=== PATIENT | female | born 1950 | race Caucasian/White ===

== ENCOUNTER 2022-11-04 08:45 | Outpatient (CLI) | payer OTHER, MEDICAID, SELFPAY ==
[2022-11-04 09:01] VITALS: BP 146/94; PULSE 78; RESP 20; TEMP 36.2; O2SAT 97
--- NOTE | 2022-11-04 09:41 | DI.RAD_ITS ---
Exam(s) XR PAIN CLINIC LUMBAR SP 2V EXAM: XR PAIN CLINIC LUMBAR SP 2V CLINICAL HISTORY: Dx: Lumbar Radiculopathy TECHNIQUE: 2D and realtime digital imaging was performed. Radiologist not present. CONTRAST MATERIAL: None. COMPARISON: No exams were available for comparison FINDINGS: Fluoroscopy was provided for pain management therapy. Please refer to procedure report or details. Cumulative dose: Ka,r=16.02 mGy IMPRESSION: RADIATION DOSE DELIVERED:
--- NOTE | 2022-11-04 09:42 | PDOC.PAIN_ITS ---
Date of service: 11/04/22 Time of Service: 11:08 Pain Clinic Procedure Note Procedure Note Procedure Note: Lumbar Epidural Steroid Injection Procedure Note COMMENTS:She was previously evaluated in our clinic. She was consented prior to taking her own Lorazepam. Pre-procedure pain VAS was 8/10 Dx: Lumbosacral radiculopathy Jami Schafer has been referred to the [facility] for lumbar epidural steroid injection. The patient was greeted by the nurse who verified patients name and . Patient was then taken to the fluoroscopy suite. The patient was interviewed and the medial record reviewed. There were no medical, pharmacologic, radiographic, or other structural contraindications to attempting fluoroscopically guided lumbar epidural steroid injection. Risks and expected side effects as well as potential benefits of the procedure were reviewed and voiced concerns expressed. The patient consent form was signed and witnessed. Standard patient time-out procedure was performed. The patient was placed in the prone position on the fluoroscopy table and automated blood pressure cuff and pulse oximeter applied. The skin entry point for entering/approaching the epidural space at L5-S1 and marked. Following thorough chlorhexadine preparation of the skin and draping and 1% lidocaine infiltration of the skin entry point and subcutaneous tissues, a 18 gauge Touhy needle was placed under fluoroscopic guidance and with loss of resistance technique into the epidural space. Needle tip placement and depth were aided and confirmed by fluoroscopy. There was no paresthesia or return of blood or CSF through the needle. 1 cc's of Omnipaque 240 was injected with clear epidural spread confirmed with fluoroscopy. 80mg depomedrol was injected. There was not any unusual discomfort expressed by Jami Schafer. Patient's vital signs were stable throughout the procedure and were as recorded in nursing records. Follow up plans and appointments were discussed with patient. Post procedure instruction was given as documented in nursing records and having met discharge criteria and was discharged from the [facility]. COMMENTS: If this procedure is helpful, it can be completed up to 3 times per 12 months. Post-procedure pain VAS was 2/10. Marc Matos DO, MPH [facility]-Pain Management [facility]-Center for Pain Management
[2022-11-04 09:52] VITALS: BP 138/91; PULSE 95; RESP 20; O2SAT 100
[2022-11-04] MEDS: methylPREDNISolone ACETATE 80 MG/ML VIAL IJ (09:53)
[2022-11-04] MEDS: Omnipaque 240 MG/ML 50 ML BTL IJ (09:54)
--- NOTE | 2022-11-04 10:23 | PDOC.PAIN ---
Date of service: 11/04/22 Time of Service: 10:00 Pain Clinic Procedure Note Procedure Note Procedure Note: Lumbar Epidural Steroid Injection Procedure Note COMMENTS: She was previously evaluated. Hem A1c was 6.5 on 08/11/22. Her pre-procedure low back and leg pain was 8/10. Dx: Lumbosacral radiculopathy Jami Schafer has been referred to the [facility] for lumbar epidural steroid injection. The patient was greeted by the nurse who verified patients name and . Patient was then taken to the fluoroscopy suite. The patient was interviewed and the medial record reviewed. There were no medical, pharmacologic, radiographic, or other structural contraindications to attempting fluoroscopically guided lumbar epidural steroid injection. Risks and expected side effects as well as potential benefits of the procedure were reviewed and voiced concerns expressed. The patient consent form was signed and witnessed. Standard patient time-out procedure was performed. The patient was placed in the prone position on the fluoroscopy table and automated blood pressure cuff and pulse oximeter applied. The skin entry point for entering/approaching the epidural space at L5-S1 and marked. Following thorough chlorhexadine preparation of the skin and draping and 1% lidocaine infiltration of the skin entry point and subcutaneous tissues, a 18 gauge Touhy needle was placed under fluoroscopic guidance and with loss of resistance technique into the epidural space. Needle tip placement and depth were aided and confirmed by fluoroscopy. There was no paresthesia or return of blood or CSF through the needle. 1 cc's of Omnipaque 240 was injected with clear epidural spread confirmed with fluoroscopy. 80mg depomedrol was injected. There was not any unusual discomfort expressed by Jami Schafer. Patient's vital signs were stable throughout the procedure and were as recorded in nursing records. Follow up plans and appointments were discussed with patient. Post procedure instruction was given as documented in nursing records and having met discharge criteria and was discharged from the [facility] Management [facility]. COMMENTS: If this procedure is helpful, it can be completed up to 3 times per 12 months. Post-procedure pain VAS was 0/10 to the low back and leg. Marc Matos DO, MPH [facility]-Pain Management [facility]-Center for Pain Management
== END 2022-11-04 08:46 | disposition home or self-care (01) ==
LOC: PC 08:48
PROVIDERS: PCP Family Medicine; Visit Provider Preventive Medicine Occupational Medicine
DX: M54.17 Radiculopathy, lumbosacral region (principal); M54.50 Low back pain, unspecified
CPT/HCPCS: 62323; 72100; J1040; Q9967

== ENCOUNTER 2023-06-18 11:36 | Day surgery (SDC) | payer MEDICARE, MEDICAID, SELFPAY ==
--- NOTE | 2023-06-18 09:43 | HPE_ITS ---
Assessment and Plan Assessment and plan (1) Posterior subcapsular age-related cataract of left eye: Status: Acute Assessment and plan: Assessment: Visually significant cataract of the left eye. Plan: Cataract extraction with lens implantation of the left eye. (2) Cortical age-related cataract, left eye: Status: Acute Assessment and plan: Assessment: Visually significant cataract of the left eye. Plan: Cataract extraction with lens implantation of the left eye. History of Present Illness History of Present Illness Chief Complaint: Progressive decreased vision, both eyes Narrative: The patient is a 72-year-old lady who presented with complaints of progressive decreased vision in both eyes at both distance and near. On examination she was noted to have moderate bilateral nuclear/cortical/posterior subcapsular cataract with corrected visual acuity of 20/50 OD, 20/80 OS. The option of cataract surgery was offered to the patient and she wished to proceed. 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 which appears new compared to EKG from 2006, pt reports no h/o symptoms consistent with [place] Fracture of femur Gastroesophageal reflux Histoplasmosis Hyperlipidemia Hypertensive disorder Insomnia Mild recurrent major depression Morbid obesity Ocular histoplasmosis syndrome of left eye Osteoarthritis Polyp of cervix Recurrent urinary tract infection Rheumatoid arthritis Solitary lung nodule Spasm Surgery, elective right ankle syndesmotic screw removal and stabilization Surgical History History of cholecystectomy History of colonoscopy History of left hip replacement History of right hip replacement History of total bilateral knee replacement S/P ORIF (open reduction internal fixation) fracture Family History Father Dementia Diabetes Mother Osteoporosis Alzheimer disease Brother Arthritis Depressive disorder Social History Smoking/Tobacco Use Status: Current every day Tobacco Type: cigarettes Smoking risk assessment performed?: Yes Alcohol Intake: never Drug use: Never Substance use type: does not use Housing: house Do you feel safe at home: Yes Do you feel safe in your relationship?: Yes Meds Allergies and Home Medications Allergies Allergy/AdvReac Type Severity Reaction Status Date / Time cefazolin Allergy Unknown Unverified 06/18/23 12:22 cephalexin [From Keflex] Allergy Unknown Verified 06/18/23 12:22 morphine Allergy Unknown Unverified 06/18/23 12:22 oxycodone Allergy Unknown Unverified 06/18/23 12:22 Home Medications Medication Instructions Recorded Confirmed Type acetaminophen 500 mg tablet 500 mg PO Q6H PRN 07/01/22 06/18/23 History (Tylenol Extra Strength) calcium carbonate 600 mg-vitamin 1 tab PO DAILY 07/01/22 06/18/23 History D3 10 mcg (400 unit) tablet (Calcium 600 + D(3)) dulaglutide 1.5 mg/0.5 mL 1.5 mg subcut QWEEK 07/01/22 06/18/23 History subcutaneous pen injector (Trulicity) duloxetine 30 mg capsule,delayed 30 mg PO DAILY 07/01/22 06/18/23 History release etodolac 500 mg tablet 500 mg PO BID 07/01/22 06/18/23 History hydrocortisone 2.5 % topical cream 1 applic topical BID PRN 07/01/22 06/18/23 History leucovorin calcium 5 mg tablet 5 mg PO QWEEK 07/01/22 06/18/23 History loperamide 2 mg capsule (Imodium 2 mg PO Q6H PRN 07/01/22 06/18/23 History A-D) meclizine 25 mg tablet (Dramamine 25 mg PO TID 07/01/22 06/18/23 History (meclizine)) metformin 500 mg tablet,extended 1,000 mg PO BID 07/01/22 06/18/23 History release 24 hr methotrexate sodium 2.5 mg tablet 2.5 mg PO QWEEK 07/01/22 06/18/23 History metoprolol succinate 50 mg 50 mg PO DAILY 07/01/22 06/18/23 History tablet,extended release 24 hr multivitamin 1 tab PO DAILY 07/01/22 06/18/23 History nystatin 100,000 unit/gram topical 1 applic topical BID 07/01/22 06/18/23 History powder (Nystop) omeprazole 40 mg capsule,delayed 40 mg PO DAILY 07/01/22 06/18/23 History release tofacitinib 11 mg tablet,extended 11 mg PO DAILY 07/01/22 06/18/23 History release 24 hr (Xeljanz XR) bupropion HCl 150 mg 24 hr tablet, 300 mg PO QAM 07/15/22 06/18/23 History extended release cranberry fruit concentrate 250 mg 250 mg PO TID PRN 07/15/22 06/18/23 History chewable tablet (Azo Cranberry) pyridoxine (vitamin B6) 25 mg 50 mg PO BID 07/15/22 06/18/23 History tablet eszopiclone 1 mg tablet 1 mg PO HS 06/17/23 06/18/23 History Exam Eyes Other: Most recent ocular examination is significant for pupils dilating to 6 mm OU. Corrected visual acuity is 20/50 OD, 20/80 OS. Extract motility is normal. In traocular pressure is 19 OU. Slit-lamp examination reveals mild cortical with moderate nuclear and posterior subcapsular cataract OU. Dilated funduscopic examination shows disc cupping of 0.3 OU with normal vessels, macula, peripheral retina and vitreous in the right eye. In the left eye there are areas of hypopigmentation and scarring in the macula due to old p.o. at bedtime. Resp Auscultation: clear to auscultation bilaterally Cardio Rate: regular rate Rhythm: regular rhythm
[2023-06-18 12:05] VITALS: BP 126/69; PULSE 98; RESP 20; TEMP 36.2; O2SAT 98
[2023-06-18] MEDS: Tropicam./Phenyleph. (1/2.5%) 5 ML BTL OS ×2 (12:14→12:27)
[2023-06-18] MEDS: Duovisc Viscoelastic System EACH 1 EACH (13:34)
[2023-06-18] MEDS: Balanced Salt Soln.-PLUS 500 ML BAG OP (13:34)
[2023-06-18] MEDS: Lidocaine 1% Pres-Free 5 ML VIAL (13:34)
[2023-06-18] MEDS: Phenylephrine/Lidocaine (15/10) MG/ML 1 ML VIAL (13:35)
[2023-06-18] MEDS: Povidone-Iodine Ophth 30 ML BTL (13:36)
[2023-06-18] MEDS: Tetracaine 0.5% 4 ML BTL OS (13:36)
--- NOTE | 2023-06-18 13:40 | W.ANESPRE ---
General Info Date of Service Date Performed: 06/18/23 Height: 5 ft 2 in Weight: 11.4 kg Body Mass Index (BMI): 4.6 Surgical Procedure: Operation Date: 06/18/23 13:40 Proposed Procedure Side Surgeon p Cataract Extraction with IOL Implant Left Jhonny Saavedra MD Actual Procedure Side Surgeon p Cataract Extraction with IOL Implant Left Jhonny Saavedra MD Pre-Op Diagnosis Post-Op Diagnosis LEFT CATARACT LEFT CATARACT Meds Allergies and Home Medications Allergies Allergy/AdvReac Type Severity Reaction Status Date / Time cefazolin Allergy Unknown Unverified 06/18/23 12:22 cephalexin [From Keflex] Allergy Unknown Verified 06/18/23 12:22 morphine Allergy Unknown Unverified 06/18/23 12:22 oxycodone Allergy Unknown Unverified 06/18/23 12:22 Home Medication Medication Instructions Recorded acetaminophen 500 mg tablet 500 mg PO Q6H PRN 07/01/22 (Tylenol Extra Strength) calcium carbonate 600 mg-vitamin 1 tab PO DAILY 07/01/22 D3 10 mcg (400 unit) tablet (Calcium 600 + D(3)) dulaglutide 1.5 mg/0.5 mL 1.5 mg subcut QWEEK 07/01/22 [facility] duloxetine 30 mg capsule,delayed 30 mg PO DAILY 07/01/22 release etodolac 500 mg tablet 500 mg PO BID 07/01/22 hydrocortisone 2.5 % topical cream 1 applic topical BID PRN 07/01/22 leucovorin calcium 5 mg tablet 5 mg PO QWEEK 07/01/22 loperamide 2 mg capsule (Imodium 2 mg PO Q6H PRN 07/01/22 A-D) meclizine 25 mg tablet (Dramamine 25 mg PO TID 07/01/22 (meclizine)) metformin 500 mg tablet,extended 1,000 mg PO BID 07/01/22 release 24 hr methotrexate sodium 2.5 mg tablet 2.5 mg PO QWEEK 07/01/22 metoprolol succinate 50 mg 50 mg PO DAILY 07/01/22 tablet,extended release 24 hr multivitamin 1 tab PO DAILY 07/01/22 nystatin 100,000 unit/gram topical 1 applic topical BID 07/01/22 powder (Nystop) omeprazole 40 mg capsule,delayed 40 mg PO DAILY 07/01/22 release tofacitinib 11 mg tablet,extended 11 mg PO DAILY 07/01/22 release 24 hr (Xeljanz XR) bupropion HCl 150 mg 24 hr tablet, 300 mg PO QAM 07/15/22 extended release cranberry fruit concentrate 250 mg 250 mg PO TID PRN 07/15/22 chewable tablet (Azo Cranberry) pyridoxine (vitamin B6) 25 mg 50 mg PO BID 07/15/22 tablet eszopiclone 1 mg tablet 1 mg PO HS 06/17/23 Current Visit Medications: Current Medications Generic Name Dose Route Start Last Admin Trade Name Freq PRN Reason Stop Dose Admin Acetaminophen 1,000 mg 06/18/23 06:00 Acetaminophen 500 Mg Tab PO 07/18/23 05:59 Q4H PRN PRN Balanced Salt Solution 500 ml 06/18/23 06:00 06/18/23 13:34 Balanced Salt Soln.-Plus 500 Ml Bag OP 07/18/23 05:59 500 ml DIRECTED ROSITA Administration Miscellaneous Medication 0 ml 06/18/23 06:00 06/18/23 13:35 Prednisolone 1%, Moxifloxacin 0.5%, Nepafenac 0.1% 5ml Btl OS 07/18/23 05:59 2 drp DIRECTED ROSITA Administration Miscellaneous Medication 0 ml 06/18/23 06:00 06/18/23 12:27 Tropicam./Phenyleph. (1/2.5%) 5 Ml Btl OS 07/18/23 05:59 1 drp DIRECTED ROSITA Administration Tetracaine HCl 0 ml 06/18/23 06:00 06/18/23 13:36 Tetracaine 0.5% 4 Ml Btl OS 07/18/23 05:59 4 drp DIRECTED ROSITA Administration PFSH Active Problems Active Problems: Problem Status Onset Code Posterior subcapsular age-related cataract of left eye H25.042 Cortical age-related cataract, left eye H25.012 Nuclear age-related cataract, left eye H25.12 Lumbar radiculitis M54.16 Medical History Medical History Accidental drug overdose Anemia Anxiety Benign paroxysmal positional vertigo Candidal intertrigo Degeneration of lumbar intervertebral disc Diabetes mellitus Diarrhea Eating disorder compulsive overeater Eczema Electrocardiogram abnormal prior to Pts surgery the 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 which appears new compared to EKG from 2007, pt reports no h/o symptoms consistent with [place] Fracture of femur Gastroesophageal reflux Histoplasmosis Hyperlipidemia Hypertensive disorder Insomnia Mild recurrent major depression Morbid obesity Ocular histoplasmosis syndrome of left eye Osteoarthritis Polyp of cervix Recurrent urinary tract infection Rheumatoid arthritis Solitary lung nodule Spasm Surgery, elective right ankle syndesmotic screw removal and stabilization Surgical History Surgical History History of cholecystectomy History of colonoscopy History of left hip replacement History of right hip replacement History of total bilateral knee replacement S/P ORIF (open reduction internal fixation) fracture Tobacco Smoking/Tobacco Use Status: Current every day Tobacco Type: cigarettes Alcohol Alcohol Intake: never Substance Use Substance use: Never Substance use type: does not use Vital Signs and Lab Results Vital Signs Most Recent Vital Signs in EMR: Most Recent Vital Signs Temp Pulse Resp BP Pulse Ox 36.2 C L 98 H 20 126/69 98 06/18/23 12:05 06/18/23 12:05 06/18/23 12:05 06/18/23 12:05 06/18/23 12:05 Point of Care Results Point of Care Results: Finger Stick Blood Glucose 161 06/18/23 11:59 Lab Results Blood Type / Crossmatch: No Data to Display Complete Blood Count: No Data to Display Complete Metabolic Panel: No Data to Display Liver Function Panel: No Data to Display Coagulation Panel: No Data to Display Cardiac Panel: No Data to Display Arterial Blood Gas: No Data to Display Venous Blood Gas: No Data to Display Pancreas Panel: No Data to Display Thyroid Panel: No Data to Display Infectious Disease: No Data to Display Blood Cultures: No Data to Display Toxicology Panel: No Data to Display Imaging and Studies Imaging and Studies Study information below may be from another EMR and interpreted by another provider. Please see original notes in EMR for more complete details. Echocardiogram Summary: Patient Name: DAPHNE BEDOYA #: [id number]: DI Ordering Provider: CAROLANN STEPHENSON : [facility] Primary Care Provider: CAROLANN STEPHENSON Date of Exam: 01/14/16ex: F : 2Age: 65 Exam(s) [id number] US:Echocardiogram Heart *[facility]* *[facility]* [address] [address] Date of study: 01/14/2016 Transthoracic Echocardiography M-mode, complete 2D, complete spectral Doppler, and color Doppler *STUDY CONCLUSIONS* Impressions: Technically poor quality due to obeisity. No gross abnormalities identified Summary: 1. Left ventricle: The cavity size was normal. Wall thickness was normal. Systolic function was normal. The estimated ejection fraction was 70%. Wall motion was normal; there were no regional wall motion abnormalities. 2. Right ventricle: The cavity size was normal. Wall thickness was normal. Systolic function was normal. 3. Pulmonary arteries: Systolic pressure could not be accurately estimated. *PATIENT PRESENTATION* Height: 157.5cm (62in ) S/D Pressure: Weight: 136.4kg (300lb ) BSA: 2.54m^2 ORDERING Kenyon Wilcox MD REFERRING Carolann Stephenson [facility] PLATER APPRENTICE Marylou Abarca *PROCEDURE DATA* Procedure information: [facility] INFO:[id number] This study was interpreted by [facility]. Pertinent images and digital data are archived for permanent storage and are available for subsequent review. Study status: Routine. Transthoracic echocardiography. M-mode, complete 2D, complete spectral Doppler, and color Doppler. A Transthoracic Echocardiogram was performed. Scanning was performed from the parasternal, apical, subcostal, and suprasternal notch acoustic windows. Image quality was poor. Study completion: The patient tolerated the procedure well. *INDICATIONS AND HISTORY* Indications: SWANN *CARDIAC ANATOMY* Left ventricle: The cavity size was normal. Wall thickness was normal. Systolic function was normal. The estimated ejection fraction was 70%. Wall motion was normal; there were no regional wall motion abnormalities. Aortic valve: Well visualized. Trileaflet; normal thickness leaflets. Mobility was not restricted. Doppler: Transvalvular velocity was within the normal range. There was no stenosis. No regurgitation. Mean gradient: 6.2mm Hg (S). Peak gradient: 11.2mm Hg (S). Aorta: Aortic root: The aortic root was normal in size. Ascending aorta: The ascending aorta was normal in size. Mitral valve: Well visualized. Structurally normal valve. Mobility was not restricted. Doppler: Transvalvular velocity was within the normal range. There was no evidence for stenosis. No regurgitation. Peak gradient: 2.6mm Hg (D). Left atrium: Well visualized. The atrium was normal in size. Pulmonary veins: Well visualized. Right ventricle: Poorly visualized. The cavity size was normal. Wall thickness was normal. Systolic function was normal. Pulmonic valve: Doppler: Transvalvular velocity was within the normal range. There was no evidence for stenosis. No regurgitation. Mean gradient: 1.9mm Hg (S). Peak gradient: 3.2mm Hg (S). Tricuspid valve: Structurally normal valve. Doppler: Transvalvular velocity was within the normal range. There was no evidence for stenosis. No regurgitation. Pulmonary artery: Systolic pressure could not be accurately estimated. Right atrium: Well visualized. The atrium was normal in size. Pericardium: There was no pericardial effusion. Systemic veins: Inferior vena cava: Not visualized. The vessel was normal in size. Baseline ECG: Normal. *MEASUREMENT TABLES* 2D measurements Normal Left ventricle LV internal dimension, ED, PLAX 42 mm 35-60 LV internal dimension, ES, PLAX 24 mm 21-40 Fractional shortening, PLAX 43 % 25-46 LV posterior wall thickness, ED, PLAX 14.9 mm ------- IVS/LVPW ratio, ED, PLAX 1 <1.3 Ventricular septum Septal thickness, ED, PLAX 14.9 mm ------- Left atrium Volume index, S 31 ml/m^2 ------- Right atrium Area, ES 12.4 cm^2 ------- Right ventricle Minor axis (basilar), ED, A4C 30.5 mm ------- Doppler measurements Normal Left ventricle Ea, lateral annulus, tissue Doppler 10 cm/s ------- E/Ea, lateral annulus, tissue Doppler 8 ------- Ea, medial annulus, tissue Doppler 12 cm/s ------- E/Ea, medial annulus, tissue Doppler 6.67 ------- Aortic valve Peak velocity, S 167 cm/s ------- Mean velocity, S 118 cm/s ------- VTI, S 2.34 cm ------- Mean gradient, S 6.2 mm Hg ------- Peak gradient, S 11.2 mm Hg ------- Mitral valve Peak E-wave velocity 80 cm/s ------- Peak A-wave velocity 106 cm/s ------- Deceleration time *249 ms 150-230 Peak gradient, D 2.6 mm Hg ------- A-wave duration 133 ms ------- Peak E/A ratio 0.75 ------- Pulmonary veins Peak velocity, S 90 cm/s ------- Pulmonic valve Peak velocity, S 90 cm/s ------- Mean velocity, S 67 cm/s ------- VTI, S 24.4 cm ------- Mean gradient, S 1.9 mm Hg ------- Peak gradient, S 3.2 mm Hg ------- Legend: Mean values are shown as u=mean value. Asterisk (*) stephens values outside specified normal range. I have personally reviewed the images and have reviewed and edited the reported findings. Electronically signed by Kenyon Wilcox MD 01/14/2016 20:59 Ordering provider: CAROLANN STEPHENSON CC: Brenden ARCHER, [facility] is privileged, confidential information intended only for the provider named. Any use or distribution by any person other than this provider is strictly prohibited. If you receive this report in error, please notify us immediately at [phone] and return the original report to us at the address above. Thank-you. Anesthesia Assessment and Plan Anesthesia History Personal History: No History of Anesthesia Complications Family History: No Family History of Anesthesia Complications Exercise Tolerance Exercise Tolerance: Metabolic Equivalents>4 Pertinent Negatives Pertinent Negatives: No Symptoms of GERD Cardiac & Pulmonary Exam Cardiac Exam: Normal S1/S2 Heart Sounds Pulmonary Exam: Clear Bilateral Breath Sounds Implantable Cardiac Device Does patient have a Pacemaker or an ICD?: No Airway Exam Known Difficult Airway: No Mallampati Class: 3 Mouth Opening: Normal (> 3cm) Thyromental Distance: Greater than 3 cm Neck Range of Motion: Full ROM Neck Circumference: Normal Teeth Condition: Removable Dentures/Plates Upper and Removable Dentures/Plates Lower ASA Classification ASA Score: ASA 3 Emergency Case?: No NPO Status NPO Status: NPO Clears >2 hours, Solids >8 hours Anesthesia Plan Resuscitation Status: Full Code Anesthesia Technique: MAC Anesthesia Airway Planned: Natural Airway Monitors Used: Standard Monitors Preoperative Comments:: Frequent uncontrolled GERD. No MKO
[2023-06-18 13:42] VITALS: BP 141/93; PULSE 90; RESP 18; TEMP 36.5; O2SAT 98
--- NOTE | 2023-06-18 13:47 | W.PM.DSUDISC ---
Date of service: 06/18/23 Time of Service: 13:47 Discharge Plan Disposition Patient Disposition: Home Discharge Details Attending Provider: Jhonny Saavedra Primary Care Provider: Wendy Hughes Home Meds and New Rx's Prescriptions: No Action calcium carbonate-vitamin D3 [Calcium 600 + D(3)] 600 mg-10 mcg (400 unit) tablet 1 tab PO DAILY duloxetine 30 mg capsule,delayed release(DR/EC) 30 mg PO DAILY etodolac 500 mg tablet 500 mg PO BID hydrocortisone 2.5 % cream 1 applic topical BID PRN loperamide [Imodium A-D] 2 mg capsule 2 mg PO Q6H PRN leucovorin calcium 5 mg tablet 5 mg PO QWEEK meclizine [Dramamine (meclizine)] 25 mg tablet 25 mg PO TID metformin 500 mg tablet extended release 24 hr 1,000 mg PO BID methotrexate sodium 2.5 mg tablet 2.5 mg PO QWEEK metoprolol succinate 50 mg tablet extended release 24 hr 50 mg PO DAILY multivitamin Tablet 1 tab PO DAILY nystatin [Nystop] 100,000 unit/gram powder 1 applic topical BID omeprazole 40 mg capsule,delayed release(DR/EC) 40 mg PO DAILY Trulicity 1.5 mg/0.5 mL pen injector 1.5 mg subcut QWEEK acetaminophen [Tylenol Extra Strength] 500 mg tablet 500 mg PO Q6H PRN Xeljanz XR 11 mg tablet extended release 24 hr 11 mg PO DAILY bupropion HCl 150 mg tablet extended release 24 hr 300 mg PO QAM pyridoxine (vitamin B6) 25 mg tablet 50 mg PO BID Azo Cranberry 250 mg tablet,chewable 250 mg PO TID PRN eszopiclone 1 mg tablet 1 mg PO HS Patient Comments: TAKE ONE TABLET BY MOUTH AT BEDTIME NEEDED Discharge Instructions Stand Alone Forms: Post-op Topical CataractChase (DSU) Discharge Orders Discharge Orders: Discharge Order (Routine); Ordered 06/18/23 Ordered By: Jhonny Saavedra DS: Diagnosis Discharge Diagnosis (1) Posterior subcapsular age-related cataract of left eye: Status: Resolved (2) Cortical age-related cataract, left eye: Status: Resolved (3) Nuclear age-related cataract, left eye: Status: Resolved
--- NOTE | 2023-06-18 13:48 | ROE_ITS ---
Date of service: 06/18/23 Time of Service: 13:48 Operative Note Operative Note DATE OF PROCEDURE: 06/18/23 PRE-OP DIAGNOSIS: Nuclear/cortical/posterior subcapsular cataract, left eye POST-OP DIAGNOSIS: same PROCEDURE: Cataract extraction using phacoemulsification with intraocular lens implant, left eye SURGEON: Jhonny Saavedra ANESTHESIA TYPE: Local By Surgeon and MAC Refer to Anesthesia Record PATHOLOGY: none sent COMPLICATIONS: None Patient was transported to: same day Patient's condition: stable Implants: Laith and Laith Tecnis Eyhance [id number] Indications: Progressive decreased vision due to cataract, left eye Procedure Description: CATARACT SURGERY OPERATIVE REPORT PREOPERATIVE DIAGNOSIS: 1. Nuclear/cortical/posterior subcapsular cataract, left eye POSTOPERATIVE DIAGNOSIS: Same OPERATION: 1. Cataract extraction using phacoemulsification with posterior chamber intraocular lens implant, left eye. IOL: IOL Manager Of Marketing/Model: Laith & Laith Tecnis Eyhance [id number] IOL Power: + 15.5 diopters IOL Serial Number: [id number] Optic Diameter: 6.0 mm Haptic/Overall Diameter: 13.0 mm PHACO INFO: Toni Docuratedurion Vision System with OZil and Active Fluidics Cumulative Dispersed Energy (CDE): 7.11 seconds SURGEON: Jhonny Saavedra MD, ASHLEE ANESTHESIA: Monitored A [facility] (MAC), with local sub-tenon's anesthetic infiltration COMPLICATIONS: None SPECIMENS: None INDICATIONS FOR PROCEDURE: The patient is a 72-year-old lady with history of diminished visual acuity in her left eye secondary to the development of nuclear/cortical/posterior subcapsular cataract. She is significantly symptomatic that she desires cataract surgery and attempt to improve and maximize her vision. The option of cataract surgery was offered to the patient and she wished to proceed. See office notes for detailed information. PROCEDURE: The correct surgical eye was identified and marked as the left eye and the pupil was dilated in the preoperative area using mydriatics and cycloplegics. The dilated pupil size was 7.0 mm. . The patient elected to proceed without oral sedation. The patient was brought to the operating room where cardiopulmonary monitoring was instituted and surgical time-out was performed, confirming the correct operative eye and IOL power. Topical anesthesia was administered and ophthalmic povidone-iodine 5% was instilled into the conjunctival fornices. The franck-ocular area was prepped with Betadine 10% solution and draped in the usual sterile fashion for intraocular surgery, including an aperture drape. A Tegaderm transparent film dressing was cut in half and used to cover the lashes and lid margins. Care was taken to sequester the lashes and lid margins under the Tegaderm dressing. A lid speculum was placed between the lids of the operative eye and the Toni LuxOR Revalia operating microscope was maneuvered into position. Jakob scissors were then used to make a conjunctival buttonhole approximately 6mm posterior to the limbus in the inferonasal quadrant. Blunt dissection was carried out to expose bare sclera, and a blunt-tipped sub-tenon?s anesthesia cannula was introduced and passed posteriorly along the globe where non- preserved plain lidocaine was injected into posterior sub-Tenon?s space. A sideport knife was used to make a paracentesis port. Intraocular phenylephrine/lidocaine was injected into the anterior chamber.. The anterior chamber was filled with viscoelastic. A keratome knife was used to construct a 2-plane near-clear corneal tunnel extending 2.0mm into clear cornea. A flap was raised on the anterior capsule and capsulorhexis forceps were used to complete a continuous curvilinear capsulorhexis of 5.0 mm. Balanced salt solution was then used to perform cortical cleaving hydrodissection and nuclear hydrodelineation until the lens could be freely rotated within the capsular bag. The lens nucleus was then disassembled and removed within the capsular bag and iris plane using phacoemulsification. Residual cortical material was removed using the irrigation/aspiration handpiece. The posterior capsule was carefully polished to remove as much residual lens epithelial cells as safely possible. The capsular bag was then inflated and the anterior chamber deepened with viscoelastic. The lens implant described above was inserted into the capsular bag using the Laith and Laith Simplicity pre-loaded injector. A Kuglen hook was used to dial the IOL into position. Residual viscoelastic was then removed first from posterior to the IOL, then from the anterior chamber using the I/A handpiece. The lens implant was noted to center nicely within the capsular bag. The incisions were stromally hydrated, and the anterior chamber was reformed using BSS. Then 0.5cc of moxifloxacin 1.0mg/ml were injected into the capsular bag and anterior chamber. The incisions were checked with a Weck spear and found to be secure. Several drops of ophthalmic povidone-iodine 5% were then applied to the eye followed by two drops of Imprimis combination prednisolone/moxifloxacin/nepafenac solution. The drapes were removed and a clear plastic protective eye shield was placed over the eye. The patient was then returned to Same Day Surgery in stable condition.
--- NOTE | 2023-06-18 14:04 | W.ANESPOSTOP ---
Postoperative Evaluation Date, Time and Location Date Performed: 06/18/23 Time Performed: 13:50 Patient Location: Day Surgery Unit Vital Signs Most Recent Imported Vital Signs: Most Recent Vital Signs Temp Pulse Resp BP Pulse Ox 36.5 C 90 18 141/93 H 98 06/18/23 13:42 06/18/23 13:42 06/18/23 13:42 06/18/23 13:42 06/18/23 13:42 Pain Score Most Recent Pain Score: Most Recent Pain Score Pain Level 0 06/18/23 13:42 Assessment Mental Status: Awake (Alert & Oriented to Patient Baseline) Airway and Respiratory Function: Patent airway with normal (patient baseline) respiratory exam Cardiovascular Function: Hemodynamically Stable Hydration Status: Adequately Hydrated Nausea & Vomiting: No Nausea or Vomiting Pain: Pt. Denies Any Pain Peripheral Nerve Block: Patient did not receive a nerve block
== END 2023-06-18 14:06 | disposition home or self-care (01) ==
PROVIDERS: PCP Internal Medicine; Visit Provider Ophthalmology
PROC: (CPT 66984; principal; 2023-06-18 13:30)
DX: H25.042 Posterior subcapsular polar age-related cataract, left eye (principal); H25.012 Cortical age-related cataract, left eye; H25.12 Age-related nuclear cataract, left eye; F17.210 Nicotine dependence, cigarettes, uncomplicated; K21.9 Gastro-esophageal reflux disease without esophagitis
CPT/HCPCS: 66984; V2632

== ENCOUNTER 2023-07-02 08:13 | Day surgery (SDC) | payer MEDICARE, MEDICAID, SELFPAY ==
[2023-07-02 08:37] VITALS: BP 134/68; PULSE 127; RESP 16; TEMP 36.5; O2SAT 97
[2023-07-02] MEDS: Tropicam./Phenyleph. (1/2.5%) 5 ML BTL OD ×3 (08:45→08:55)
--- NOTE | 2023-07-02 08:56 | W.ANESPRE ---
General Info Date of Service Date Performed: 07/02/23 Height: 5 ft 2 in Weight: 113.1 kg Body Mass Index (BMI): 45.6 Surgical Procedure: Operation Date: 07/02/23 09:55 Proposed Procedure Side Surgeon p Cataract Extraction with IOL Implant Right Jhonny Saavedra MD Meds Allergies and Home Medications Allergies Allergy/AdvReac Type Severity Reaction Status Date / Time cefazolin Allergy Unknown Unverified 06/30/23 09:43 cephalexin [From Keflex] Allergy Unknown Verified 06/30/23 09:43 morphine Allergy Unknown Unverified 06/30/23 09:43 oxycodone Allergy Unknown Unverified 06/30/23 09:43 Home Medication Medication Instructions Recorded acetaminophen 500 mg tablet 500 mg PO Q6H PRN 07/01/22 (Tylenol Extra Strength) calcium carbonate 600 mg-vitamin 1 tab PO DAILY 07/01/22 D3 10 mcg (400 unit) tablet (Calcium 600 + D(3)) dulaglutide 1.5 mg/0.5 mL 1.5 mg subcut QWEEK 07/01/22 subcutaneous pen injector (Trulicity) duloxetine 30 mg capsule,delayed 30 mg PO DAILY 07/01/22 release etodolac 500 mg tablet 500 mg PO BID 07/01/22 hydrocortisone 2.5 % topical cream 1 applic topical BID PRN 07/01/22 leucovorin calcium 5 mg tablet 5 mg PO QWEEK 07/01/22 loperamide 2 mg capsule (Imodium 2 mg PO Q6H PRN 07/01/22 A-D) meclizine 25 mg tablet (Dramamine 25 mg PO TID PRN 07/01/22 (meclizine)) metformin 500 mg tablet,extended 1,000 mg PO BID 07/01/22 release 24 hr methotrexate sodium 2.5 mg tablet 2.5 mg PO QWEEK 07/01/22 metoprolol succinate 50 mg 50 mg PO DAILY 07/01/22 tablet,extended release 24 hr multivitamin 1 tab PO DAILY 07/01/22 nystatin 100,000 unit/gram topical 1 applic topical BID 07/01/22 powder (Nystop) omeprazole 40 mg capsule,delayed 40 mg PO DAILY 07/01/22 release tofacitinib 11 mg tablet,extended 11 mg PO DAILY 07/01/22 release 24 hr (Xeljanz XR) bupropion HCl 150 mg 24 hr tablet, 300 mg PO QAM 07/15/22 extended release pyridoxine (vitamin B6) 25 mg 50 mg PO BID 07/15/22 tablet eszopiclone 1 mg tablet 1 mg PO HS 06/17/23 clonidine HCl 0.09 mg/mL oral 1 mg PO BID 07/02/23 suspension,extend release 24hr Current Visit Medications: Current Medications Generic Name Dose Route Start Last Admin Trade Name Freq PRN Reason Stop Dose Admin Acetaminophen 1,000 mg 07/02/23 06:00 Acetaminophen 500 Mg Tab PO 08/01/23 05:59 Q4H PRN PRN Balanced Salt Solution 500 ml 07/02/23 06:00 Balanced Salt Soln.-Plus 500 Ml Bag OP 08/01/23 05:59 DIRECTED ROSITA Miscellaneous Medication 0 ml 07/02/23 06:00 Prednisolone 1%, Moxifloxacin 0.5%, Nepafenac 0.1% 5ml Btl OD 08/01/23 05:59 DIRECTED ROSITA Miscellaneous Medication 0 ml 07/02/23 06:00 07/02/23 08:55 Tropicam./Phenyleph. (1/2.5%) 5 Ml Btl OD 08/01/23 05:59 1 drp DIRECTED ROSITA Administration Tetracaine HCl 0 ml 07/02/23 06:00 Tetracaine 0.5% 4 Ml Btl OD 08/01/23 05:59 DIRECTED ROSITA PFSH Active Problems Active Problems: Problem Status Onset Code Posterior subcapsular age-related cataract, right eye H25.041 Cortical age-related cataract, right eye H25.011 Nuclear age-related cataract, right eye H25.11 Posterior subcapsular age-related cataract of left eye H25.042 Cortical age-related cataract, left eye H25.012 Nuclear age-related cataract, left eye H25.12 Lumbar radiculitis M54.16 Medical History Medical History Accidental drug overdose Anemia Anxiety Benign paroxysmal positional vertigo Candidal intertrigo Degeneration of lumbar intervertebral disc Diabetes mellitus Diarrhea Eating disorder compulsive overeater Eczema Electrocardiogram abnormal prior to Pts surgery the 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 which appears new compared to EKG from 2006, pt reports no h/o symptoms consistent with SD Fracture of femur Gastroesophageal reflux Histoplasmosis Hyperlipidemia Hypertensive disorder Insomnia Mild recurrent major depression Morbid obesity Ocular histoplasmosis syndrome of left eye Osteoarthritis Polyp of cervix Recurrent urinary tract infection Rheumatoid arthritis Solitary lung nodule Spasm Surgery, elective right ankle syndesmotic screw removal and stabilization Surgical History Surgical History History of cholecystectomy History of colonoscopy History of left hip replacement History of right hip replacement History of total bilateral knee replacement S/P ORIF (open reduction internal fixation) fracture Tobacco Smoking/Tobacco Use Status: Current every day Tobacco Type: cigarettes Alcohol Alcohol Intake: never Substance Use Substance use: Never Substance use type: does not use Vital Signs and Lab Results Vital Signs Most Recent Vital Signs in EMR: Most Recent Vital Signs Temp Pulse Resp BP Pulse Ox 36.5 C 127 H 16 134/68 97 07/02/23 08:37 07/02/23 08:37 07/02/23 08:37 07/02/23 08:37 07/02/23 08:37 Point of Care Results Point of Care Results: Finger Stick Blood Glucose 197 07/02/23 08:29 Lab Results Blood Type / Crossmatch: No Data to Display Complete Blood Count: No Data to Display Complete Metabolic Panel: No Data to Display Liver Function Panel: No Data to Display Coagulation Panel: No Data to Display Cardiac Panel: No Data to Display Arterial Blood Gas: No Data to Display Venous Blood Gas: No Data to Display Pancreas Panel: No Data to Display Thyroid Panel: No Data to Display Infectious Disease: No Data to Display Blood Cultures: No Data to Display Toxicology Panel: No Data to Display Imaging and Studies Imaging and Studies Study information below may be from another EMR and interpreted by another provider. Please see original notes in EMR for more complete details. EKG Summary: 07/02/2023: Sinus Tachycardia Echocardiogram Summary: Patient Name: DAPHNE BEDOYA #: [id number]: DI Ordering Provider: CAROLANN STEPHENSON : REG CLI Primary Care Provider: CAROLANN STEPHENSON Date of Exam: 01/14/16ex: F : 2Age: 65 Exam(s) [id number] US:Echocardiogram Heart *[facility]* *[facility]* [address] [place] [address] Date of study: 01/14/2016 Transthoracic Echocardiography M-mode, complete 2D, complete spectral Doppler, and color Doppler *STUDY CONCLUSIONS* Impressions: Technically poor quality due to obeisity. No gross abnormalities identified Summary: 1. Left ventricle: The cavity size was normal. Wall thickness was normal. Systolic function was normal. The estimated ejection fraction was 70%. Wall motion was normal; there were no regional wall motion abnormalities. 2. Right ventricle: The cavity size was normal. Wall thickness was normal. Systolic function was normal. 3. Pulmonary arteries: Systolic pressure could not be accurately estimated. *PATIENT PRESENTATION* Height: 157.5cm (62in ) S/D Pressure: Weight: 136.4kg (300lb ) BSA: 2.54m^2 ORDERING Kenyon Wilcox MD REFERRING Carolann Stephenson [facility] RESTAURANT ATTENDANT Marylou Abarca *PROCEDURE DATA* Procedure information: [facility] INFO:[id number] This study was interpreted by [facility]. Pertinent images and digital data are archived for permanent storage and are available for subsequent review. Study status: Routine. Transthoracic echocardiography. M-mode, complete 2D, complete spectral Doppler, and color Doppler. A Transthoracic Echocardiogram was performed. Scanning was performed from the parasternal, apical, subcostal, and suprasternal notch acoustic windows. Image quality was poor. Study completion: The patient tolerated the procedure well. *INDICATIONS AND HISTORY* Indications: SWANN *CARDIAC ANATOMY* Left ventricle: The cavity size was normal. Wall thickness was normal. Systolic function was normal. The estimated ejection fraction was 70%. Wall motion was normal; there were no regional wall motion abnormalities. Aortic valve: Well visualized. Trileaflet; normal thickness leaflets. Mobility was not restricted. Doppler: Transvalvular velocity was within the normal range. There was no stenosis. No regurgitation. Mean gradient: 6.2mm Hg (S). Peak gradient: 11.2mm Hg (S). Aorta: Aortic root: The aortic root was normal in size. Ascending aorta: The ascending aorta was normal in size. Mitral valve: Well visualized. Structurally normal valve. Mobility was not restricted. Doppler: Transvalvular velocity was within the normal range. There was no evidence for stenosis. No regurgitation. Peak gradient: 2.6mm Hg (D). Left atrium: Well visualized. The atrium was normal in size. Pulmonary veins: Well visualized. Right ventricle: Poorly visualized. The cavity size was normal. Wall thickness was normal. Systolic function was normal. Pulmonic valve: Doppler: Transvalvular velocity was within the normal range. There was no evidence for stenosis. No regurgitation. Mean gradient: 1.9mm Hg (S). Peak gradient: 3.2mm Hg (S). Tricuspid valve: Structurally normal valve. Doppler: Transvalvular velocity was within the normal range. There was no evidence for stenosis. No regurgitation. Pulmonary artery: Systolic pressure could not be accurately estimated. Right atrium: Well visualized. The atrium was normal in size. Pericardium: There was no pericardial effusion. Systemic veins: Inferior vena cava: Not visualized. The vessel was normal in size. Baseline ECG: Normal. *MEASUREMENT TABLES* 2D measurements Normal Left ventricle LV internal dimension, ED, PLAX 42 mm 35-60 LV internal dimension, ES, PLAX 24 mm 21-40 Fractional shortening, PLAX 43 % 25-46 LV posterior wall thickness, ED, PLAX 14.9 mm ------- IVS/LVPW ratio, ED, PLAX 1 <1.3 Ventricular septum Septal thickness, ED, PLAX 14.9 mm ------- Left atrium Volume index, S 31 ml/m^2 ------- Right atrium Area, ES 12.4 cm^2 ------- Right ventricle Minor axis (basilar), ED, A4C 30.5 mm ------- Doppler measurements Normal Left ventricle Ea, lateral annulus, tissue Doppler 10 cm/s ------- E/Ea, lateral annulus, tissue Doppler 8 ------- Ea, medial annulus, tissue Doppler 12 cm/s ------- E/Ea, medial annulus, tissue Doppler 6.67 ------- Aortic valve Peak velocity, S 167 cm/s ------- Mean velocity, S 118 cm/s ------- VTI, S 2.34 cm ------- Mean gradient, S 6.2 mm Hg ------- Peak gradient, S 11.2 mm Hg ------- Mitral valve Peak E-wave velocity 80 cm/s ------- Peak A-wave velocity 106 cm/s ------- Deceleration time *249 ms 150-230 Peak gradient, D 2.6 mm Hg ------- A-wave duration 133 ms ------- Peak E/A ratio 0.75 ------- Pulmonary veins Peak velocity, S 90 cm/s ------- Pulmonic valve Peak velocity, S 90 cm/s ------- Mean velocity, S 67 cm/s ------- VTI, S 24.4 cm ------- Mean gradient, S 1.9 mm Hg ------- Peak gradient, S 3.2 mm Hg ------- Legend: Mean values are shown as u=mean value. Asterisk (*) stephens values outside specified normal range. I have personally reviewed the images and have reviewed and edited the reported findings. Electronically signed by Kenyon Wilcox MD 01/14/2016 20:59 Ordering provider: CAROLANN STEPHENSON CC: Brenden ARCHER, [facility] is privileged, confidential information intended only for the provider named. Any use or distribution by any person other than this provider is strictly prohibited. If you receive this report in error, please notify us immediately at [phone] and return the original report to us at the address above. Thank-you. Pulmonary Function Summary: 01/15/2016: IMPRESSION: While there is no evidence of obstructive airways disease, the effort for the spirometry especially during exhalation is extremely poor. Therefore, clinical correlation was recommended and if indicated spirometry may need to be repeated. Anesthesia Assessment and Plan Anesthesia History Personal History: No History of Anesthesia Complications Family History: No Family History of Anesthesia Complications Exercise Tolerance Exercise Tolerance: Metabolic Equivalents>4 Pertinent Negatives Pertinent Negatives: No Symptoms of GERD, No Major Cardiovascular Symptoms or Complaints and No Major Pulmonary Symptoms or Complaints Cardiac & Pulmonary Exam Cardiac Exam: Normal S1/S2 Heart Sounds Pulmonary Exam: Clear Bilateral Breath Sounds Implantable Cardiac Device Does patient have a Pacemaker or an ICD?: No Airway Exam Known Difficult Airway: No Mallampati Class: 3 Mouth Opening: Normal (> 3cm) Thyromental Distance: Greater than 3 cm Neck Range of Motion: Full ROM Neck Circumference: Normal Teeth Condition: Removable Dentures/Plates Upper and Removable Dentures/Plates Lower ASA Classification ASA Score: ASA 3 Emergency Case?: No NPO Status NPO Status: NPO Clears >2 hours, Solids >8 hours Anesthesia Plan Resuscitation Status: Full Code Anesthesia Technique: MAC Anesthesia Airway Planned: Natural Airway Monitors Used: Standard Monitors Preoperative Comments:: No MKO administered, patient also on GLP-1.
--- NOTE | 2023-07-02 09:30 | RT.EKG_ITS ---
APPROVED REPORT Exam: Resting ECG Reason for Exam: New onset tachycardia Patient Location: O HR:127 bpm ECG Measurements Heart Rate 127 AXIS OK 148 P 44 QRSd 96 QRS -55 QT 308 T 32 QTc 446 Conclusion Sinus tachycardia...rate> 99 Left anterior fascicular block...axis(240,-40), init forces inf Late transition
[2023-07-02 10:23] VITALS: BMI 45.6
[2023-07-02] MEDS: Balanced Salt Soln.-PLUS 500 ML BAG OP (10:39)
[2023-07-02] MEDS: Duovisc Viscoelastic System EACH 1 EACH (10:40)
[2023-07-02] MEDS: Povidone-Iodine Ophth 30 ML BTL (10:40)
[2023-07-02] MEDS: Lidocaine 1% Pres-Free 5 ML VIAL (10:40)
[2023-07-02] MEDS: Phenylephrine/Lidocaine (15/10) MG/ML 1 ML VIAL (10:41)
[2023-07-02] MEDS: Tetracaine 0.5% 4 ML BTL OD (10:44)
[2023-07-02 10:55] VITALS: BP 114/93; PULSE 105; RESP 20; TEMP 36.5; O2SAT 96
--- NOTE | 2023-07-02 10:55 | W.PM.DSUDISC ---
Date of service: 07/02/23 Time of Service: 10:55 Discharge Plan Disposition Patient Disposition: Home Discharge Details Attending Provider: Jhonny Saavedra Primary Care Provider: Wendy Hughes Home Meds and New Rx's Prescriptions: No Action calcium carbonate-vitamin D3 [Calcium 600 + D(3)] 600 mg-10 mcg (400 unit) tablet 1 tab PO DAILY duloxetine 30 mg capsule,delayed release(DR/EC) 30 mg PO DAILY etodolac 500 mg tablet 500 mg PO BID hydrocortisone 2.5 % cream 1 applic topical BID PRN loperamide [Imodium A-D] 2 mg capsule 2 mg PO Q6H PRN leucovorin calcium 5 mg tablet 5 mg PO QWEEK meclizine [Dramamine (meclizine)] 25 mg tablet 25 mg PO TID PRN metformin 500 mg tablet extended release 24 hr 1,000 mg PO BID methotrexate sodium 2.5 mg tablet 2.5 mg PO QWEEK metoprolol succinate 50 mg tablet extended release 24 hr 50 mg PO DAILY multivitamin Tablet 1 tab PO DAILY nystatin [Nystop] 100,000 unit/gram powder 1 applic topical BID omeprazole 40 mg capsule,delayed release(DR/EC) 40 mg PO DAILY Trulicity 1.5 mg/0.5 mL pen injector 1.5 mg subcut QWEEK acetaminophen [Tylenol Extra Strength] 500 mg tablet 500 mg PO Q6H PRN Xeljanz XR 11 mg tablet extended release 24 hr 11 mg PO DAILY bupropion HCl 150 mg tablet extended release 24 hr 300 mg PO QAM pyridoxine (vitamin B6) 25 mg tablet 50 mg PO BID eszopiclone 1 mg tablet 1 mg PO HS Patient Comments: TAKE ONE TABLET BY MOUTH AT BEDTIME NEEDED clonidine HCl 0.09 mg/mL Suspension,Extend Release 24hr 1 mg PO BID Discharge Instructions Stand Alone Forms: Post-op Topical Cataract, Chase gNo (DSU) Discharge Orders Discharge Orders: Discharge Order (Routine); Ordered 07/02/23 Ordered By: Jhonny Saavedra DS: Diagnosis Discharge Diagnosis (1) Posterior subcapsular age-related cataract, right eye: Status: Resolved (2) Cortical age-related cataract, right eye: Status: Suspected (3) Nuclear age-related cataract, right eye: Status: Resolved
--- NOTE | 2023-07-02 10:56 | ROE_ITS ---
Date of service: 07/02/23 Time of Service: 10:56 Operative Note Operative Note DATE OF PROCEDURE: 07/02/23 PRE-OP DIAGNOSIS: Nuclear/cortical/posterior subcapsular cataract, right eye POST-OP DIAGNOSIS: same PROCEDURE: Cataract extraction using phacoemulsification with intraocular lens implant, right eye SURGEON: Jhonny Saavedra ANESTHESIA TYPE: Local By Surgeon and MAC Refer to Anesthesia Record ESTIMATED BLOOD LOSS: 0 PATHOLOGY: none sent COMPLICATIONS: None Patient was transported to: same day Patient's condition: stable Implants: Laith & Laith Tecnis Eyhance [id number] Indications: Progressive visual loss due to cataract, right eye Procedure Description: CATARACT SURGERY OPERATIVE REPORT PREOPERATIVE DIAGNOSIS: 1. Nuclear/cortical/posterior subcapsular cataract, right eye POSTOPERATIVE DIAGNOSIS: Same OPERATION: 1. Cataract extraction using phacoemulsification with posterior chamber intraocular lens implant, right eye. IOL: IOL [employer] Claims Supervisor/Model: Laith & Laith Tecnis Eyhance [id number] IOL Power: + 14.5 diopters IOL Serial Number: [id number] Optic Diameter: 6.0mm Haptic/Overall Diameter: 13.0mm PHACO INFO: Toni Compellonurion Vision System with OZil and Active Fluidics Cumulative Dispersed Energy (CDE): 8.65 seconds SURGEON: Jhonny Saavedra MD, ASHLEE ANESTHESIA: Monitored Anesthesia Care (MAC), with local sub-tenon's anesthetic infiltration COMPLICATIONS: None SPECIMENS: None INDICATIONS FOR PROCEDURE: The patient is a 72-year-old lady with history of diminished visual acuity in both eyes secondary to the development of bilateral cataract. She has already undergone cataract surgery in the left eye and is doing well postoperatively. She now presents for cataract surgery in the right eye. PROCEDURE: The correct surgical eye was identified and marked as the right eye and the pupil was dilated in the preoperative area using mydriatics and cycloplegics. The dilated pupil size was 7.0 mm. . No sedation was used due to the patient's comorbidities. The patient was brought to the operating room where cardiopulmonary monitoring was instituted and surgical time-out was performed, confirming the correct operative eye and IOL power. Topical anesthesia was administered and ophthalmic povidone-iodine 5% was instilled into the conjunctival fornices. The franck-ocular area was prepped with Betadine 10% solution and draped in the usual sterile fashion for intraocular surgery, including an aperture drape. A Tegaderm transparent film dressing was cut in half and used to cover the lashes and lid margins. Care was taken to sequester the lashes and lid margins under the Tegaderm dressing. A lid speculum was placed between the lids of the operative eye and the Toni LuxOR Revalia operating microscope was maneuvered into position. Jakob scissors were then used to make a conjunctival buttonhole approximately 6mm posterior to the limbus in the inferonasal quadrant. Blunt dissection was carried out to expose bare sclera, and a blunt-tipped sub-tenon?s anesthesia cannula was introduced and passed posteriorly along the globe where non- preserved plain lidocaine was injected into posterior sub-Tenon?s space. A sideport knife was used to make a paracentesis port. Intraocular phenylephrine/lidocaine was injected into the anterior chamber. The anterior chamber was filled with viscoelastic. A keratome knife was used to construct a 2-plane clear corneal tunnel extending 2.0mm into clear cornea. A flap was raised on the anterior capsule and capsulorhexis forceps were used to complete a continuous curvilinear capsulorhexis of 5.0 mm. Balanced salt solution was then used to perform cortical cleaving hydrodissection and nuclear hydrodelineation until the lens could be freely rotated within the capsular bag. The lens nucleus was then disassembled and removed within the capsular bag and iris plane using phacoemulsification. Residual cortical material was removed using the I/A handpiece. The posterior capsule was carefully polished to remove as much residual lens epithelial cells as safely possible. The capsular bag was then inflated and the anterior chamber deepened with cohesive viscoelastic. The lens implant described above was inserted into the capsular bag using the Laith and Saeid Simplicity pre- loaded injector. A Kuglen hook was used to dial the IOL into position. Residual viscoelastic was then removed first from posterior to the IOL, then from the anterior chamber using the I/A handpiece. The lens implant was noted to center nicely within the capsular bag. The incisions were stromally hydrated, and the anterior chamber was reformed using BSS. Then 0.5cc of moxifloxacin 1.0mg/ml were injected into the capsular bag and anterior chamber. The incisions were checked with a Weck spear and found to be secure. Several drops of ophthalmic povidone-iodine 5% were then applied to the eye followed by two drops of Imprimis combination prednisolone/moxifloxacin/nepafenac solution. The drapes were removed and a clear plastic protective eye shield was placed over the eye. The patient was then returned to Same Day Surgery in stable condition.
--- NOTE | 2023-07-02 11:07 | W.ANESPOSTOP ---
Postoperative Evaluation Date, Time and Location Date Performed: 07/02/23 Time Performed: 10:57 Patient Location: Day Surgery Unit Vital Signs Most Recent Imported Vital Signs: Most Recent Vital Signs Temp Pulse Resp BP Pulse Ox 36.5 C 127 H 16 134/68 97 07/02/23 08:37 07/02/23 08:37 07/02/23 08:37 07/02/23 08:37 07/02/23 08:37 Pain Score Most Recent Pain Score: Most Recent Pain Score Pain Level 0 07/02/23 08:37 Assessment Mental Status: Awake (Alert & Oriented to Patient Baseline) Airway and Respiratory Function: Patent airway with normal (patient baseline) respiratory exam Cardiovascular Function: Hemodynamically Stable Hydration Status: Adequately Hydrated Nausea & Vomiting: No Nausea or Vomiting Pain: Pt. Denies Any Pain Peripheral Nerve Block: Patient did not receive a nerve block
== END 2023-07-02 11:14 | disposition home or self-care (01) ==
LOC: SUR 08:14
PROVIDERS: PCP Internal Medicine; Visit Provider Ophthalmology
PROC: (CPT 66984; principal; 2023-07-02 09:45)
DX: H25.041 Posterior subcapsular polar age-related cataract, right eye (principal); H25.011 Cortical age-related cataract, right eye; H25.11 Age-related nuclear cataract, right eye
CPT/HCPCS: 66984; V2632; 93005; 93010

== ENCOUNTER → 2023-07-29 01:45 | Outpatient (CLI) | payer MEDICARE, MEDICAID, SELFPAY ==
--- NOTE | 2023-07-29 | DI.MRI_ITS ---
Exam(s) MR UPPER JOINT LT WO EXAM: MR UPPER JOINT LT WO CLINICAL HISTORY: LT SHOULDER MASS. TECHNIQUE: Multiplanar multisequence MRI was performed. COMPARISON: Exam interpreted without benefit of comparison plain films. FINDINGS: BONES: There are end-stage degenerative changes of the glenohumeral joint. There are multiple subchon dral cysts in the humeral head. Are there is prominent spurring at the posterior and inferior aspect of the humeral head. The glenoid is severely deformed with prominent spurring. There is also deformit y of the acromion. A 3 centimeter low signal lesion is seen beneath the level of the coracoid less li fabi represents a large loose body in the subcoracoid bursa. JOINTS:The acromioclavicular joint shows mild spurring. TENDONS: Supraspinatus: Unremarkable. Infraspinatus: Unremarkable. Subscapularis: Unremarkable. Teres [place]: Unremarkable. Biceps and [place]: Unremarkable. MUSCLES: Mild diffuse atrophy. SOFT TISSUES: Multiloculated cystic collection seen anterior to the junction between the anterior de ltoid and pectoral muscle, anterior to the level of the acromion measuring roughly 5.5 cm in length b y 4.5 cm transverse by 1.7 cm AP. It likely represents a synovial cyst or ganglion which may emanate from the glenohumeral joint. OTHER: Subacromial and subdeltoid bursae shows minimal fluid.. IMPRESSION: End-stage degenerative changes of the glenohumeral joint. Multiloculated cystic collection, synovial cyst versus ganglia located between the anterior deltoid a nd pectoralis muscle. No suspicion of malignancy. DATA REPOSITORY:
--- NOTE | 2023-07-29 | DI.MRI_ITS ---
Exam(s) MR LUMBAR SPINE WO EXAM: MR LUMBAR SPINE WO CLINICAL HISTORY: LUMBAGO. TECHNIQUE: Multiplanar multisequence MRI of the Lumbar spine was performed. COMPARISON: CR XR LS SPINE 2-3 VIEWS from 01/06/2019 MR MR LS SPINE WO CONTRAST from 01/12/2019 FINDINGS: Bones: The last intervertebral disc space is designated the L5/S1 level for the numbering purpose of this ex amination. The vertebral body heights are well maintained. Alignment: Slight degenerative levoscoliosis. The marrow signal characteristics are unremarkable. Cord: The conus tip ends at the T12 L1 level. It is of normal size and signal intensity. T12-L1: No focal disc herniation is present. No central spinal canal stenosis.No neural foraminal st enosis. L1-2: Moderate to severe loss of disc height, eccentric toward the right. Prominent endplate osteoph ytes. Broad-based disc bulging. Superimposed large central and right-sided disc herniation with inf erior extrusion of disc material. This causes severe central canal stenosis. No significant neural foraminal narrowing. L2-3:Moderate to severe loss of disc height, eccentric toward the right with prominent endplate osteo phytes. No focal disc herniation is present. Ligamentous hypertrophy. Facet degenerative changes. Mild central spinal canal stenosis.[id number] bilateral neural foraminal stenosis. Previousl y noted left-sided disc herniation no longer present. L3-4: Severe loss of disc height. Prominent endplate osteophytes project circumferentially. Broad-b ased concentric disc bulging. Facet degenerative changes and ligamentous hypertrophy combine to prod uce moderate central canal stenosis. Moderate to severe neural foraminal narrowing, left greater serena n right.. L4-5: No focal disc herniation is present. Severe loss of disc height. Broad-based disc osteophytes . Facet degenerative changes and ligamentous hypertrophy combine to produce mild central canal steno sis. Severe left and moderate right neural foraminal narrowing. L5-S1: Moderate to severe loss of disc height. Endplate osteophytes. Facet degenerative changes. S evere bilateral neural foraminal encroachment. No focal disc herniation is present. No central spin al canal stenosis. The visualized SI joints and sacrum are well maintained. Soft tissues: The paraspinal soft tissues are unremarkable. IMPRESSION: Large right paracentral disc herniation with inferior extrusion of disc material at the L1-2 level. This causes severe central canal stenosis. This is new from prior. Multilevel degenerative disc changes and facet degenerative changes, causing neural foraminal narrowi ng bilaterally. Moderate central canal stenosis L3-4. Some progression from prior, particularly at the L3-4 level. DATA REPOSITORY:
== END ==
PROVIDERS: PCP Internal Medicine; Visit Provider Internal Medicine
DX: M19.019 Primary osteoarthritis, unspecified shoulder (principal); M67.412 Ganglion, left shoulder
CPT/HCPCS: 72148; 73221

== ENCOUNTER 2024-01-27 10:21 | Outpatient (CLI) | payer MEDICARE, MEDICAID, SELFPAY ==
[2024-01-27 11:05] VITALS: BP 110/84; PULSE 105; RESP 20; TEMP 36.7; O2SAT 95
--- NOTE | 2024-01-27 11:33 | PDOC.PAIN_ITS ---
Date of service: 01/27/24 Time of Service: 11:33 Pain Managment Procedure Note Procedure Note Procedure Note: PROCEDURE NOTE Bilateral Lumbar Medial Branch Blocks Date of Service: January 27, 2024 Patient: Jami Schafer Provider: Marc Matos DO, MPH Jami Schafer has been referred to the [facility] for lumbar medial branch blocks. 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 I did change this to bilateral after speaking with her today. Her symptoms are now equal to each side of the low back. Her Hernandez's test is now positive bilaterally. She does agree with the bilateral procedure. Jami? was interviewed and the medical records were reviewed. There were no medical, pharmacologic, radiographic or other structural contraindications to attempting fluoroscopically guided local anesthetic lumbar medial branch blocks. Risks and potential side effects were discussed. I also discussed the potential benefit(s) of the procedure with Jami, and voiced concerns were a ddressed. After Jami was completely informed about the procedure, the printed consent form was signed. A standard time-out procedure was performed. Jami was placed in the prone position on the fluoroscopy table. Automated blood pressure cuff and pulse oximeter were applied. The skin entry points for approaching the anatomic target points of the segmental medial branches of bilateral L3,L4,L5 were identified with fluoroscopy and marked. The skin at the target site area was thoroughly prepared with Chlorhexadine. The skin was then draped. Next, a 25 gauge 3.5 spinal needle was placed under fluoroscopic guidance down on to the target point (the articular pillar) for each respective segmental medial branch. Position was confirmed in A/P and lateral views. Asp iration revealed no blood or clear fluid. Next, 0.25ml of omnipaque 240 was injected at each level. No contrast following a vascular or neural pattern was visualized under continuous fluoroscopy. Next, 0.25 ml of preservative-free 0.5% bupivicaine was injected at each level. There was no unusual discomfort expressed by Jami. The needles were withdrawn without difficulty. (49 mls of Omnipaque was wasted) Jami was observed and was without hemodynamic, neurologic, or allergic reactions.? Fluoroscopic images were digitally archived. Provacative testing using the Modified Hernandez's facet loading test- Left side Right Side Directly before the block VAS (0-10) = 9/10 VAS (0-10) = 9/10 Five minutes after the block VAS (0-10) = 4/10 VAS (0-10) = 4/10 Percentage relief obtained with this diagnostic block 60% 60% Any improved physical functioning directly after the blocks? Able to move her low back with much less difficulty. Follow up plans and appointments were discussed with Jami. Jami was instructed to keep careful note of how the usual pain was modified by these injections. Specifically, to keep a pain diary for the next 4 hours using a numeric pain scale of 0-10 and report these results. Post procedure instruction was given as documented in the nursing documentation and having met discharge criteria, the patient was [facility] from the [facility]. Based on the medial branches blocked today, if they patient has adequate relief and we are able to proceed to radiofrequency ablation, the treatment should result in the denervation of the bilateral L4-L5 and L5-S1 facet joints. We would expect to denervate a total of 4 facets during the radiofrequency ablation. COMMENTS: No apparent complications. Post-procedure pain: VAS= 4/10 Jami will call back with 0-4 hour post-procedure pain scores. I personally performed the entire procedure. MARC MATOS DO, MPH ABPM&R-subspecialty board certification in Pain Medicine [facility] [facility]
--- NOTE | 2024-01-27 11:35 | DI.RAD_ITS ---
Exam(s) XR PAIN CLINIC LUMBAR SP 2V EXAM: XR PAIN CLINIC LUMBAR SP 2V CLINICAL HISTORY: Dx: Lumbar Spondylosis TECHNIQUE: 2D and realtime digital imaging was performed. CONTRAST MATERIAL: Refer to procedure report. COMPARISON: No exams were available for comparison FINDINGS: Fluoroscopy was provided for Dr. Matos during the performance of a lumbar medial branch block. Pedro russell refer to the procedure report for complete details. Ka,r=26.1 mGy IMPRESSION: RADIATION DOSE DELIVERED: 0.0 0.0 0
[2024-01-27 11:46] VITALS: BP 138/96; PULSE 97; RESP 20; O2SAT 95
[2024-01-27] MEDS: Omnipaque 240 MG/ML 50 ML BTL IJ (11:50)
[2024-01-27] MEDS: Bupivacaine 0.5% Pres-Free 10 ML VIAL IJ (11:51)
[2024-01-27] MEDS: Nerve Block Tray 1 EACH MC (11:51)
== END 2024-01-27 10:22 | disposition home or self-care (01) ==
LOC: PC 10:22
PROVIDERS: PCP Internal Medicine; Visit Provider Preventive Medicine Occupational Medicine
DX: M54.50 Low back pain, unspecified (principal); M47.816 Spondylosis without myelopathy or radiculopathy, lumbar region
CPT/HCPCS: 00123; 64635; 64636; 72100; J0665; Q9967

== ENCOUNTER 2024-03-01 11:28 | Outpatient (CLI) | payer MEDICARE, MEDICAID, SELFPAY ==
[2024-03-01 12:52] VITALS: BP 150/79; PULSE 116; RESP 20; TEMP 36.6; O2SAT 95
--- NOTE | 2024-03-01 13:11 | PDOC.PAIN_ITS ---
Date of service: 03/01/24 Time of Service: 13:11 Pain Managment Procedure Note Procedure Note Procedure Note: PROCEDURE NOTE Bilateral Lumbar Medial Branch Blocks Date of Service: March 01, 2024 Patient: Jami Schafer Provider: Marc Matos DO, MPH Jami Schafer has been referred to the [facility] for lumbar medial branch blocks. Pre-operative diagnosis: Lumbar Spondylosis without Myelopathy Post-operative diagnosis: Same Pre-procedure pain: VAS= 6/10 COMMENTS: She did very well with the first LMBBs on 01/27/24. Jami? was interviewed and the medical records were reviewed. There were no medical, pharmacologic, radiographic or other structural contraindications to attempting fluoroscopically guided local anesthetic lumbar medial branch blocks. Risks and potential side effects were discussed. I also discussed the potential benefit(s) of the procedure with Jami, and voiced concerns were addressed. After Jami was completely informed about the procedure, the printed consent form was signed. A standard time-out procedure was performed. Jami was placed in the prone position on the fluoroscopy table. Automated blood pressure cuff and pulse oximeter were applied. The skin entry points for approaching the anatomic target points of the segmental medial branches of bilateral L3,L4,L5 were identified with fluoroscopy and marked. The skin at the target site area was thoroughly prepared with Chlorhexadine. The skin was then draped. Next, a 25 gauge 3.5 spinal needle was placed under fluoroscopic guidance down on to the target point (the articular pillar) for each respective segmental medial branch. Position was confirmed in A/P and lateral views. Aspiration revealed no blood or clear fluid. Next, 0.25ml of omnipaque 240 was injected at each level. No contrast following a vascular or neural pattern was visualized under continuous fluoroscopy. Next, 0.25 ml of preservative-free 0.5% bupivicaine was injected at each level. There was no unusual discomfort expressed by Jami. The needles were withdrawn without difficulty. (49 mls of Omnipaque was wasted) Jami was observed and was without hemodynamic, neurologic, or allergic reactions.? Fluoroscopic images were digitally archived. Provacative testing using the Modified Hernandez's facet loading test- Left side Right Side Directly before the block VAS (0-10) = 6/10 VAS (0-10) = 6/10 Five minutes after the block VAS (0-10) = 3/10 VAS (0-10) = 3/10 Percentage relief obtained with this diagnostic block 50% 50% Any improved physical functioning directly after the blocks? Able to move around much easier. Follow up plans and appointments were discussed with Jami. Jami was instructed to keep careful note of how the usual pain was modified by these injections. Specifically, to keep a pain diary for the next 4 hours using a numeric pain scale of 0-10 and report these results. Post procedure instruction was given as documented in the nursing documentation and having met discharge criteria, the patient was [facility] from the [facility]. Based on the medial branches blocked today, if they patient has adequate relief and we are able to proceed to radiofrequency ablation, the treatment should result in the denervation of the bilateral L4-L5 and L5-S1 facet joints. We would expect to denervate a total of 4 facets during the radiofrequency ablation. COMMENTS: No apparent complications. Post-procedure pain: VAS= 3/10 Jami will call back with 0-4 hour post-procedure pain scores. I personally performed the entire procedure. MARC MATOS DO, MPH ABPM&R-subspecialty board certification in Pain Medicine [facility]
[2024-03-01 13:35] VITALS: BP 151/92; PULSE 105; RESP 12; O2SAT 97
--- NOTE | 2024-03-01 13:35 | DI.RAD_ITS ---
Exam(s) XR PAIN CLINIC LUMBAR SP 2V EXAM: XR PAIN CLINIC LUMBAR SP 2V CLINICAL HISTORY: Dx: Lumbar Spondylosis. TECHNIQUE: Fluoroscopy was provided for the referring physician for guidance with performing pain cl inic injection procedure. COMPARISON: No exams were available for comparison FINDINGS: Please see procedure note for details. Fluoro time: 51.8 seconds RADIATION DOSE DELIVERED: Ka,r=23.4 mGy
[2024-03-01] MEDS: Omnipaque 240 MG/ML 50 ML BTL IJ (13:37)
[2024-03-01] MEDS: Nerve Block Tray 1 EACH MC (13:37)
[2024-03-01] MEDS: Bupivacaine 0.5% Pres-Free 10 ML VIAL IJ (13:38)
== END 2024-03-01 11:29 | disposition home or self-care (01) ==
LOC: PC 11:28
PROVIDERS: PCP Internal Medicine; Visit Provider Preventive Medicine Occupational Medicine
DX: M54.50 Low back pain, unspecified (principal); M47.816 Spondylosis without myelopathy or radiculopathy, lumbar region
CPT/HCPCS: 64493; 64494; 72100; J0665; Q9967

== ENCOUNTER 2024-04-12 12:05 | Outpatient (CLI) | payer MEDICARE, MEDICAID, SELFPAY ==
--- NOTE | 2024-04-12 06:00 | DI.RAD_ITS ---
Exam(s) XR PAIN CLINIC LUMBAR SP 2V EXAM: XR PAIN CLINIC LUMBAR SP 2V CLINICAL HISTORY: DX: Lumbar spondylosis TECHNIQUE: 2D and realtime digital imaging was performed. CONTRAST MATERIAL: Refer to procedure report. COMPARISON: No exams were available for comparison FINDINGS: Fluoroscopy was provided for Dr. Matos during the performance of a bilateral lumbar radiofrequency ab lation. Please refer to the procedure report for complete details. Ka,r=39.1 mGy IMPRESSION: RADIATION DOSE DELIVERED: 0.0 0.0 0
[2024-04-12 12:31] VITALS: BP 129/89; PULSE 101; RESP 20; TEMP 36.6; O2SAT 96
[2024-04-12] MEDS: Midazolam 2 MG/2 ML VIAL IVP (13:25)
[2024-04-12] MEDS: fentaNYL 100 MCG/2 ML VIAL IVP (13:30)
[2024-04-12] MEDS: Lactated Ringers 500 ML 80 ML IV (14:15)
[2024-04-12] MEDS: Nerve Block Tray 1 EACH MC (14:15)
[2024-04-12] MEDS: methylPREDNISolone ACETATE 40 MG/ML VIAL IJ (14:17)
[2024-04-12] MEDS: Bupivacaine 0.5% Pres-Free 10 ML VIAL IJ (14:17)
[2024-04-12] MEDS: Lidocaine 2% Multi-Dose 20 ML VIAL IJ (14:18)
[2024-04-12 14:19] VITALS: BP 165/88; PULSE 96; RESP 14; O2SAT 100
--- NOTE | 2024-04-12 14:39 | PDOC.PAIN ---
Date of service: 04/12/24 Time of Service: 14:39 Pain Managment Procedure Note Procedure Note Procedure Note: PROCEDURE NOTE BILATERAL LUMBAR RADIOFREQUENCY ABLATION Date of Service: April 12, 2024 Patient:? Jami Schafer? Provider:? Marc Matos DO, MPH Jami Schafer has been [facility] to the [facility] for Bilateral Lumbar Radiofrequency Ablation with the [employer] Machine.? Pre Operative Diagnosis: Lumbosacral Spondylosis without Myelopathy Post Operative Diagnosis: Same Pre procedure pain; VAS= 8/10 Comments: She did very well with LMBB x 2 at the bilateral L3-L5 medical branches PROCEDURE: Radiofrequency Ablation of medial branches - bilateral L3, L4, L5 and lateral branches of bilateral S1. Jami?was interviewed and the medical record was reviewed.? There were no medical, pharmacologic, radiographic or other structural contraindications to attempting fluoroscopically guided BILATERAL Lumbar Radiofrequency Ablation.?Risks and expected side effects as well as potential benefit of the procedure were reviewed with Jami, and the patient's voiced concerns were addressed.? The printed consent form was signed.? Standard time-out procedure was performed. Jami was brought into the fluoroscopy suite and positioned into the prone position on the fluoroscopy table and allowed to adjust to a position of comfort. A grounding pad was placed on the left abdomen. The sterile field was prepared using chlorhexidine preparation of the skin and sterile draping. Local anesthesia superficial and deep was provided by local infiltration of 2% lidocaine. A 17g 100 mm radiofrequency introducer needle was placed to the planned anatomic targets guided with intermittent fluoroscopy with a perpendicular approach to terminally place at the junction of the superior articular process and the transverse process of the bilateral L4, L5, the base of the sacral ala on the bilateral for the L5 medial branch nerve and the area between base of the sacral ala to the S1 foramen bilaterally. The stylets were removed and radiofrequency probes with a 4mm active tip were then inserted. Needle tip position of the probes was verified in the AP, oblique, and lateral views. At each site, the medial branch nerve was stimulated at 2 Hz to a maximum 1-2 volts determined to finalize safe needle and electrode placement. The patient was awake and responsive during this portion of the procedure. Each target was anesthetized with 1-2 mL of 2 % Lidocaine for anesthesia for lesioning and then each target was lesioned at 80 degrees Celsius for 2 minutes and 30 seconds. Tissue impedances were noted to be between 250 and 500 Ohms. Next, I injected 1/4 cc of Depomedrol (40 mg/cc) followed by 1 cc of 0.5% Bupivacaine at each segmental sensory nerve. There was no unusual discomfort expressed by Jami. The needles were withdrawn without difficulty and bandages placed over the needle placement sites, the patient was observed and was without hemodynamic, neurologic, or allergic reactions. Fluoroscopic images were digitally archived. POST PROCEDURE EVALUATION: IMPRESSION: 1. Summary of procedure. Medication given is documented in the MAR. 2. Follow up plan: Jami to contact [facility] as needed.?This procedure may be repeated if the patient achieves at least 50% improvement in pain/function for at least 6 months. 3. Estimated Blood Loss: <5 mls 4. Fluoroscopy time: Documented in the EMR. Follow up plans and appointments were discussed with the Jami. Post procedure instruction was given as documented in nursing documentation and having met discharge criteria, Jami was discharged from the [facility]. COMMENTS: No apparent complications. Post-procedure pain: VAS= 2/10. I personally completed the entire procedure. MARC MATOS DO, MPH ABPM&R - Subspecialty board certification in Pain Medicine [facility] [facility]
== END 2024-04-12 12:06 | disposition home or self-care (01) ==
LOC: PC 12:05
PROVIDERS: PCP Internal Medicine; Visit Provider Preventive Medicine Occupational Medicine
DX: M47.816 Spondylosis without myelopathy or radiculopathy, lumbar region (principal); M54.50 Low back pain, unspecified
CPT/HCPCS: 64635; 64636; 72100; J0665; J1010; J2003; J2250; J3010